=== PATIENT | female | born 1990 ===

== ENCOUNTER 2017-10-18 20:46 | Emergency (ER) | payer MEDICAID ==
[2017-10-18 21:02] VITALS: BP 142/94; PULSE 91; RESP 18; TEMP 98; O2SAT 100
--- NOTE | 2017-10-18 21:49 | ED PDOC ---
HPI: Abdomen Time Seen by Provider: 10/18/17 21:04 Chief Complaint (Nursing): Abdominal Pain Chief Complaint (Provider): Abdominal Pain History Per: Patient History/Exam Limitations: no limitations Onset/Duration Of Symptoms: Hrs Current Symptoms Are (Timing): Still Present Location Of Pain/Discomfort: LLQ Additional Complaint(s): 27 y/o female with no significant PMHx presents to the ED for evaluation of left lower quadrant abdominal pain, gradual onset this morning. Patient reports pain is now constant and non-radiating associated with mild nausea. Patient reports of having similar pain in the past when she was diagnosed with Ovarian Cysts that resolved spontaneously after having a menstrual cycle. Patient additionally reports of taking Tylenol with minimal relief. Denies fever, chills , vomiting, diarrhea, constipation, loss of appetite, urinary symptoms, vaginal discharge and vaginal bleeding. PMD: [facility] LNMP: Many months ago (Patient reports this is due to having a Depo shot. Past Medical History Reviewed: Historical Data, Nursing Documentation, Vital Signs Vital Signs: Last Vital Signs Temp 98.0 F 10/18/17 20:59 Pulse 91 H 10/18/17 20:59 Resp 18 10/18/17 20:59 BP 142/94 H 10/18/17 20:59 Pulse Ox 100 10/18/17 21:54 - Medical History PMH: No Chronic Diseases - Surgical History Surgical History: (x2) - Family History Family History: States: No Known Family Hx - Social History Current smoker - smoking cessation education provided: No - Home Medications Home Medications: Ambulatory Orders Medication Instructions Recorded Naproxen [Naprosyn] 1 tab PO BID PRN #30 tab 10/18/17 - Allergies Allergies/Adverse Reactions: Allergies Allergy/AdvReac Type Severity Reaction Status Date / Time No Known Allergies Allergy Verified 10/18/17 21:02 Review of Systems ROS Statement: Except As Marked, All Systems Reviewed And Found Negative (as per HPI) Constitutional: Negative for: Fever, Chills Gastrointestinal: Positive for: Nausea, Abdominal Pain. Negative for: Vomiting , Diarrhea, Constipation, Other (loss of appetite) Genitourinary Female: Negative for: Vaginal Discharge, Vaginal Bleeding Physical Exam - Physical Exam Appears: Positive for: Non-toxic, No Acute Distress Gastrointestinal/Abdominal: Positive for: Normal Exam, Soft, Tenderness (Mild tenderness to the pelvic area. Negative Cronin's Tenderness, negative McBurney' s [place]). Negative for: Mass, Guarding, Rebound - ECG O2 Sat by Pulse Oximetry: 100 (RA) Pulse Ox Interpretation: Normal Medical Decision Making Medical Decision Making: Time: 2131 Impression: Left pelvic pain with a benign exam -- Likely recourse of ovarian cysts vs vs UTI. -- No clinical signs of torsion, rupture or infectious ideology. -- Pain controlled. Patient is now stable for discharge. -- ED Urine -- ED Urine Dipstick -- Toradol 30 mg IM Scribe Attestation: Documented by Scarlett Hernandez acting as a scribe for Sheron Shaw MD. Provider Scribe Attestation: All medical record entries made by the Scribe were at my direction and personally dictated by me. I have reviewed the chart and agree that the record accurately reflects my personal performance of the history, physical exam, medical decision making, and the department course for this patient. I have also personally directed, reviewed, and agree with the discharge instructions and disposition. Disposition - Clinical Impression Clinical Impression: Ovarian cyst, Pelvic pain - Disposition Referrals: Gay Diamond [Staff Provider] - 10/20/17 Disposition: Routine/Home Disposition Time: 21:32 Condition: STABLE Prescriptions: Naproxen [Naprosyn] 1 tab PO BID PRN #30 tab PRN Reason: Pain Instructions: Ovarian Cyst (DC), Acute Pelvic Pain (DC) Forms: [employer] ([place]) Print Language: WALLISIAN
== END 2017-10-18 22:58 | disposition home or self-care (01) ==
LOC: H.ER 20:46
DX: N83.202 Unspecified ovarian cyst, left side (principal); R10.2 Pelvic and perineal pain
CPT/HCPCS: 81025; 96372; 99283; J1885